=== PATIENT | female | born 1990 | race Caucasian/White ===

== ENCOUNTER 2022-04-28 10:43 | Inpatient (IN) | payer OTHER ==
[~2022-04-28 10:43] MED LIST: Iopamidol-370 76% 500 ML 1 ML ONE
[2022-04-28] MEDS ORDERED: Ondansetron PF 4 MG/2 ML Vial ONE (11:02)
[2022-04-28] MEDS ORDERED: Morphine 4 MG/ML VIAL ONE (11:02)
[2022-04-28 11:10] LABS: Hemoglobin 13.2 g/dL (12.0-16.0); Mean Corpuscular HGB CONC 32.4 g/dL (32.0-36.0); Mean Corpuscular Hemoglobin 23.2 pg (27.0-31.0); Mean Corpuscular Volume 71.7 fl (78.0-98.0); Mean Platelet Volume 9.5 fL (7.4-10.4); Platelet Count 276 10x3/uL (130-400); RBC Distribution Width 14.9 % (11.5-14.5); Red Blood Cell (RBC) Count 5.66 mill/uL (4.20-5.40)
[2022-04-28 11:27] LABS: BHCG - Serum Negative (NEGATIVE); Pregs Control Background? CLEAR/WHITE (CLR/WHITE); Pregs Control Bar Appear? YES (CONTROL BAR)
[2022-04-28] MEDS ORDERED: Acetaminophen 500 MG TAB ONE (11:29)
[2022-04-28] MEDS ORDERED: Piperacillin/Tazobactam 4.5 GM VIAL ONE (11:30)
[2022-04-28 11:32] LABS: ALT (SGPT) 18 U/L (8-55); AST (SGOT) 13 U/L (5-34); Albumin 4.1 g/dL (3.5-5.0); Alkaline Phosphatase 39 U/L (40-110); Anion Gap 16 mmol/L (10-20); BUN (Urea Nitrogen) 10 mg/dL (7.0-18.7); Bilirubin, Total 1.4 mg/dL (0.2-1.2); Calc. Creatinine Clearance 0 mL/min (70-130); Calcium 7.9 mg/dL (7.8-10.44); Carbon Dioxide 25 mmol/L (22-29); Chloride 99 mmol/L (98-107); Estimated GFR 112; Globulin 3.5 g/dL (2.4-3.5); Glucose 81 mg/dL (70-105); Potassium 3.2 mmol/L (3.5-5.1); Protein, Total 7.6 g/dL (6.0-8.3); Sodium 137 mmol/L (136-145)
[2022-04-28 11:36] LABS: Prothrombin Time 13.8 sec (12.0-14.7)
[2022-04-28 11:37] LABS: PTT 28.4 sec (22.9-36.1)
[2022-04-28 11:47] LABS: #Eosinphils 0.1 thou/uL (0.0-0.7); #Lymphocytes 1.3 thou/uL (1.20-3.40); #Monocytes 0.9 thou/uL (0.11-0.59); #Neutrophils 10.7 thou/uL (1.40-6.50); %Eosinophils 0.8 % (0.0-10.0); %Lymphocytes 10.1 % (21.0-51.0); %Monocytes 6.5 % (0.0-10.0); %Neutrophils 82.5 % (42.0-75.0); Hypochromia SLIGHT = 6-15 cells (100X) (0-5/hpf); MDiff Complete? YES; Microcytosis SLIGHT = 6-15 cells (100X) (0-5/hpf); Platelet Morphology Comment Appears Adequate; Polychromasia SLIGHT = 2-3 cells (100X) (0-2/hpf)
[2022-04-28 12:54] LABS: Bilirubin Negative (Negative); Blood, Urine Negative (Negative); Clarity Clear (Clear); Glucose, Urine (Dipstick) Normal (Negative); Ketone, Urine Trace mg/dL (Negative); Leukocyte Negative Leu/uL (Negative); Nitrite Negative (Negative); Protein, Urine (Dipstick) Negative (Neg-Trace); Specific Gravity, Urine 1.048 (1.002-1.036); Urobilinogen Normal mg/dL (Less than 2); pH, Urine 5.5 (5.0-9.0)
[2022-04-28] MEDS ORDERED: Ondansetron PF 4 MG/2 ML Vial IVP PRN (15:41)
[2022-04-28] MEDS ORDERED: Ondansetron ODT 4 MG TAB PO PRN (15:41)
[2022-04-28] MEDS ORDERED: Acetaminophen 650 MG Suppository PR PRN ×2 (15:41→17:30)
[2022-04-28] MEDS ORDERED: Acetaminophen 325 MG TAB PO PRN (15:41)
[2022-04-28] MEDS ORDERED: Morphine 4 MG/ML VIAL SLOW IVP PRN (15:43)
[2022-04-28] MEDS ORDERED: Electrolyte Replacement Protocol 1 EACH FS SCH (15:45)
[2022-04-28 16:12] VITALS: BMI 39.6
[2022-04-28] MEDS ORDERED: FLU VACC QS2022-23(6MOS UP)/PF 60 MCG/0.5 ML SYRINGE IM ONE (16:45)
[2022-04-28] MEDS: Acetaminophen 325 MG TAB PO PRN (17:47)
[2022-04-28] MEDS: methylPREDNISolone Sod Succ 40 MG VIAL IVP SCH (17:47)
[2022-04-28] MEDS: Piperacillin/Tazobactam 3.375 GM in Sodium Chloride 0.9% 100 ML IVPB SCH (17:47)
[2022-04-28] MEDS ORDERED: Ibuprofen 200 MG TAB PO PRN (19:38)
[2022-04-28] MEDS: Famotidine/PF 20 mg/2ml Vial SLOW IVP SCH (20:11)
[2022-04-29] MEDS: methylPREDNISolone Sod Succ 40 MG VIAL IVP SCH ×5 (00:55→23:05)
[2022-04-29] MEDS: Piperacillin/Tazobactam 3.375 GM in Sodium Chloride 0.9% 100 ML IVPB SCH ×3 (01:01→18:41)
[2022-04-29 08:00] LABS: ALT (SGPT) 17 U/L (8-55); AST (SGOT) 14 U/L (5-34); Albumin 3.5 g/dL (3.5-5.0); Alkaline Phosphatase 31 U/L (40-110); Anion Gap 13 mmol/L (10-20); BUN (Urea Nitrogen) 8 mg/dL (7.0-18.7); Calc. Creatinine Clearance 259 mL/min (70-130); Carbon Dioxide 23 mmol/L (22-29); Chloride 102 mmol/L (98-107); Estimated GFR 122; Globulin 2.9 g/dL (2.4-3.5); Glucose 119 mg/dL (70-105); Magnesium 1.8 mg/dL (1.6-2.6); Potassium 3.9 mmol/L (3.5-5.1); Protein, Total 6.4 g/dL (6.0-8.3); Sodium 134 mmol/L (136-145)
[2022-04-29] MEDS: Acetaminophen 325 MG TAB PO PRN (08:26)
[2022-04-29] MEDS: Escitalopram Oxalate 10 mg Tablet PO SCH (08:27)
[2022-04-29] MEDS: Famotidine/PF 20 mg/2ml Vial SLOW IVP SCH ×2 (08:28→20:45)
[2022-04-29] MEDS ORDERED: Magnesium 2 GM/50 ML(in water) 2 GM in Premix Bag 1 BAG IVPB SCH (09:15)
[2022-04-29] MEDS: Calcium Carbonate 500 MG ChewTAB PO SCH (20:45)
[2022-04-30] MEDS: Piperacillin/Tazobactam 3.375 GM in Sodium Chloride 0.9% 100 ML IVPB SCH ×2 (00:38→09:40)
[2022-04-30] MEDS: methylPREDNISolone Sod Succ 40 MG VIAL IVP SCH ×2 (05:39→12:29)
[2022-04-30] MEDS ORDERED: Levothyroxine Sodium 100 MCG TAB PO SCH (06:00)
[2022-04-30 07:57] LABS: Magnesium 2.1 mg/dL (1.6-2.6)
[2022-04-30] MEDS: Escitalopram Oxalate 10 mg Tablet PO SCH (09:40)
[2022-04-30] MEDS: Calcium Carbonate 500 MG ChewTAB PO SCH (09:40)
[2022-04-30] MEDS: Famotidine/PF 20 mg/2ml Vial SLOW IVP SCH (09:40)
[2022-04-30 14:54] VITALS: BP 136/83; TEMP 98.1
== END 2022-04-30 15:10 | disposition home or self-care (01) | DRG 386 ==
LOC: ERS 10:43 → ERHOLD 13:38 → T4-B 15:52
PROVIDERS: ADMIT Internal Medicine; ATTEND Internal Medicine
DX: K50.90 Crohn's disease, unspecified, without complications (principal); A09 Infectious gastroenteritis and colitis, unspecified; C85.90 Non-Hodgkin lymphoma, unspecified, unspecified site; C79.9 Secondary malignant neoplasm of unspecified site; R65.10 Systemic inflammatory response syndrome (SIRS) of non-infectious origin without acute organ dysfunction; D50.9 Iron deficiency anemia, unspecified; C73 Malignant neoplasm of thyroid gland; E87.6 Hypokalemia; Z88.8 Allergy status to other drugs, medicaments and biological substances; Z79.51 Long term (current) use of inhaled steroids; Z79.890 Hormone replacement therapy; Z88.5 Allergy status to narcotic agent
CPT/HCPCS: 36415; 36416; 74177; 80053; 81003; 83605; 83735; 84703; 85025; 85610; 85730; 87040; 87086; 93005; 94760; 96374; 96375; J2270; J2405; J2543; J2920; J3475; J3480; J3490; Q9967; S0028; U0003; U0005

== ENCOUNTER 2022-05-28 09:29 | Inpatient (IN) | payer OTHER ==
[2022-05-28 10:22] LABS: #Eosinphils 0.1 thou/uL (0.0-0.7); #Lymphocytes 2.9 thou/uL (1.20-3.40); #Monocytes 1.4 thou/uL (0.11-0.59); #Neutrophils 11.2 thou/uL (1.40-6.50); %Basophils 0.2 % (0.0-1.0); %Eosinophils 0.6 % (0.0-10.0); %Lymphocytes 18.6 % (21.0-51.0); %Neutrophils 71.6 % (42.0-75.0); Hemoglobin 12.5 g/dL (12.0-16.0); Mean Corpuscular Hemoglobin 22.2 pg (27.0-31.0); Mean Corpuscular Volume 71.6 fl (78.0-98.0); Mean Platelet Volume 8.9 fL (7.4-10.4); Platelet Count 346 10x3/uL (130-400); RBC Distribution Width 15.5 % (11.5-14.5); Red Blood Cell (RBC) Count 5.63 mill/uL (4.20-5.40); White Blood Cell (WBC) Count 15.7 10x3/uL (4.8-10.8)
[2022-05-28 10:49] LABS: ALT (SGPT) 20 U/L (8-55); AST (SGOT) 12 U/L (5-34); Alkaline Phosphatase 39 U/L (40-110); Anion Gap 16 mmol/L (10-20); BUN (Urea Nitrogen) 13 mg/dL (7.0-18.7); Bilirubin, Total 0.9 mg/dL (0.2-1.2); Calc. Creatinine Clearance 0 mL/min (70-130); Calcium 8.2 mg/dL (7.8-10.44); Carbon Dioxide 25 mmol/L (22-29); Chloride 98 mmol/L (98-107); Estimated GFR 107; Globulin 3.6 g/dL (2.4-3.5); Glucose 78 mg/dL (70-105); Potassium 3.6 mmol/L (3.5-5.1); Protein, Total 7.6 g/dL (6.0-8.3); Sodium 135 mmol/L (136-145)
[2022-05-28] MEDS ORDERED: Iopamidol-370 76% 500 ML 1 ML ONE (11:32)
[2022-05-28 11:43] LABS: Bacteria/HPF None Seen HPF (None Seen); Bilirubin Negative (Negative); Blood, Urine 2+ (Negative); Clarity Clear (Clear); Glucose, Urine (Dipstick) Normal (Negative); Ketone, Urine Negative (Negative); Leukocyte 25 Leu/uL (Negative); Nitrite Negative (Negative); Protein, Urine (Dipstick) 50 mg/dL (Neg-Trace); Specific Gravity, Urine 1.042 (1.002-1.036); WBC/HPF 0-3 HPF (0-3); pH, Urine 5.5 (5.0-9.0)
[2022-05-28 11:47] LABS: Pregnancy Test - Urine (BHCG) Negative (Negative); Pregu Control Background? CLEAR/WHITE (CLR/WHITE); Pregu Control Bar Appear? YES (CONTROL BAR); Specific Gravity 1.042 (1.002-1.036)
[2022-05-28] MEDS ORDERED: Ondansetron PF 4 MG/2 ML Vial ONE (12:17)
[2022-05-28] MEDS ORDERED: Morphine 4 MG/ML VIAL ONE ×4 (12:19→18:05)
[2022-05-28] MEDS ORDERED: Piperacillin/Tazobactam 3.375 GM VIAL ONE (14:11)
[2022-05-28] MEDS ORDERED: Morphine 2 MG/ML VIAL ONE (14:34)
[2022-05-28] MEDS ORDERED: Ipratropium/Albuterol 3 ML NEB NEB PRN (19:46)
[2022-05-28] MEDS ORDERED: Morphine 2 MG/ML VIAL SLOW IVP PRN (19:46)
[2022-05-28] MEDS ORDERED: Ondansetron PF 4 MG/2 ML Vial IVP PRN (19:46)
[2022-05-28] MEDS ORDERED: Ketorolac Tromethamine 30 MG/ML VIAL IVP PRN (19:46)
[2022-05-28] MEDS ORDERED: hydrALAZINE 20 MG/ML VIAL SLOW IVP PRN (19:46)
[2022-05-28] MEDS ORDERED: Dextrose 5% in Water 1,000 ML IV PRN (19:46)
[2022-05-28] MEDS ORDERED: Dextrose 50% Abboject 50 ML SYRINGE SLOW IVP PRN (19:46)
[2022-05-28] MEDS ORDERED: Promethazine HCl 25 MG/ML VIAL IM PRN (19:46)
[2022-05-28] MEDS ORDERED: Ketorolac Tromethamine 30 MG/ML VIAL ONE (19:48)
[2022-05-28] MEDS: Calcitriol 0.25 MCG CAP PO SCH (22:03)
[2022-05-28] MEDS: Famotidine 20 MG TAB PO SCH (22:04)
[2022-05-28] MEDS: Piperacillin/Tazobactam 3.375 GM in Sodium Chloride 0.9% 100 ML IVPB SCH (22:04)
[2022-05-28] MEDS: Famotidine/PF 20 mg/2ml Vial SLOW IVP SCH (22:04)
[2022-05-28] MEDS: Morphine 4 MG/ML VIAL SLOW IVP PRN (22:04)
[2022-05-28] MEDS: D5 1/2 NS w/20 mEq KCL 1,000 ML IV SCH (22:05)
[2022-05-28 22:30] VITALS: BMI 39.7
[2022-05-28 23:07] LABS: SARS-CoV-2 NAA Rapid Test Not Detected (NotDetected)
[2022-05-29] MEDS: Morphine 4 MG/ML VIAL SLOW IVP PRN (02:42)
[2022-05-29 03:07] LABS: Pregnancy Test - Urine (BHCG) Negative (Negative); Pregu Control Background? CLEAR/WHITE (CLR/WHITE); Pregu Control Bar Appear? YES (CONTROL BAR); Specific Gravity 1.031 (1.002-1.036)
[2022-05-29] MEDS: Levothyroxine Sodium 100 MCG TAB PO SCH (04:43)
[2022-05-29] MEDS: Piperacillin/Tazobactam 3.375 GM in Sodium Chloride 0.9% 100 ML IVPB SCH ×2 (04:44→15:52)
[2022-05-29] MEDS: D5 1/2 NS w/20 mEq KCL 1,000 ML IV SCH ×2 (04:44→15:52)
[2022-05-29 05:52] LABS: #Eosinphils 0.1 thou/uL (0.0-0.7); #Lymphocytes 2.3 thou/uL (1.20-3.40); #Monocytes 1.4 thou/uL (0.11-0.59); %Eosinophils 0.6 % (0.0-10.0); %Monocytes 10.8 % (0.0-10.0); %Neutrophils 70.6 % (42.0-75.0); Hemoglobin 10.5 g/dL (12.0-16.0); Mean Corpuscular HGB CONC 32.2 g/dL (32.0-36.0); Mean Corpuscular Volume 71.6 fl (78.0-98.0); Mean Platelet Volume 8.6 fL (7.4-10.4); Platelet Count 293 10x3/uL (130-400); RBC Distribution Width 15.3 % (11.5-14.5); Red Blood Cell (RBC) Count 4.54 mill/uL (4.20-5.40); White Blood Cell (WBC) Count 12.7 10x3/uL (4.8-10.8)
[2022-05-29 06:09] LABS: ALT (SGPT) 14 U/L (8-55); AST (SGOT) 8 U/L (5-34); Albumin 3.3 g/dL (3.5-5.0); Alkaline Phosphatase 30 U/L (40-110); Bilirubin, Direct 0.5 mg/dL (0.1-0.3); Bilirubin, Total 1.5 mg/dL (0.2-1.2); CRP (Inflammatory) 13.05 mg/dL (= or < 0.5)
[2022-05-29 06:15] LABS: Anion Gap 15 mmol/L (10-20); BUN (Urea Nitrogen) 11 mg/dL (7.0-18.7); Calc. Creatinine Clearance 200 mL/min (70-130); Calcium 6.8 mg/dL (7.8-10.44); Carbon Dioxide 22 mmol/L (22-29); Chloride 102 mmol/L (98-107); Estimated GFR 103; Glucose 82 mg/dL (70-105); Magnesium 1.7 mg/dL (1.6-2.6); Potassium 3.6 mmol/L (3.5-5.1); Sodium 135 mmol/L (136-145)
[2022-05-29] MEDS: Calcitriol 0.25 MCG CAP PO SCH ×2 (08:56→21:04)
[2022-05-29] MEDS: Escitalopram Oxalate 10 mg Tablet PO SCH (08:56)
[2022-05-29] MEDS: predniSONE 20 MG TAB PO SCH (08:56)
[2022-05-29] MEDS: Cholecalciferol 1,000 UNITS (25 MCG) TAB PO SCH (08:56)
[2022-05-29] MEDS: Famotidine 20 MG TAB PO SCH ×2 (08:56→21:04)
[2022-05-29] MEDS: Famotidine/PF 20 mg/2ml Vial SLOW IVP SCH ×2 (08:57→21:49)
[2022-05-29] MEDS ORDERED: Calcium Gluconate 4.6 MEQ in Sodium Chloride 0.9% 100 ML IVPB SCH (09:30)
[2022-05-29] MEDS ORDERED: CALCIUM GLUC 1 GM/NS 50 ML 1 GM in Premix Bag 1 BAG IVPB SCH (09:30)
[2022-05-29] MEDS ORDERED: USTEKINUMAB IVPB SCH (10:00)
[2022-05-29] MEDS ORDERED: Acetaminophen 325 MG/10.15 ML UDCUP PO PRN (15:02)
[2022-05-29 21:51] LABS: Campy jejuni + coli by PCR Negative (Negative); STEC Shiga Toxin 1+2 Negative (Negative); Salmonella spp. by PCR Negative (Negative); Shigella spp + EIEC by PCR Negative (Negative)
[2022-05-30] MEDS: Piperacillin/Tazobactam 3.375 GM in Sodium Chloride 0.9% 100 ML IVPB SCH ×3 (00:10→16:32)
[2022-05-30] MEDS: D5 1/2 NS w/20 mEq KCL 1,000 ML IV SCH ×3 (03:50→09:15)
[2022-05-30] MEDS: Levothyroxine Sodium 100 MCG TAB PO SCH (06:28)
[2022-05-30 06:48] LABS: #Eosinphils 0.1 thou/uL (0.0-0.7); #Monocytes 0.9 thou/uL (0.11-0.59); #Neutrophils 8.1 thou/uL (1.40-6.50); %Basophils 0.2 % (0.0-1.0); %Eosinophils 0.9 % (0.0-10.0); %Lymphocytes 17.8 % (21.0-51.0); %Monocytes 7.6 % (0.0-10.0); %Neutrophils 73.5 % (42.0-75.0); Hemoglobin 9.9 g/dL (12.0-16.0); Mean Corpuscular Hemoglobin 22.6 pg (27.0-31.0); Mean Corpuscular Volume 72.9 fl (78.0-98.0); Mean Platelet Volume 8.9 fL (7.4-10.4); Platelet Count 252 10x3/uL (130-400); RBC Distribution Width 15.4 % (11.5-14.5); Red Blood Cell (RBC) Count 4.38 mill/uL (4.20-5.40); White Blood Cell (WBC) Count 11.1 10x3/uL (4.8-10.8)
[2022-05-30 07:16] LABS: Anion Gap 10 mmol/L (10-20); BUN (Urea Nitrogen) 5 mg/dL (7.0-18.7); Calc. Creatinine Clearance 251 mL/min (70-130); Carbon Dioxide 25 mmol/L (22-29); Chloride 103 mmol/L (98-107); Estimated GFR 121; Glucose 98 mg/dL (70-105); Magnesium 1.9 mg/dL (1.6-2.6); Potassium 3.4 mmol/L (3.5-5.1); Sodium 135 mmol/L (136-145)
[2022-05-30] MEDS: Calcitriol 0.25 MCG CAP PO SCH (09:15)
[2022-05-30] MEDS: Famotidine 20 MG TAB PO SCH (09:16)
[2022-05-30] MEDS: predniSONE 20 MG TAB PO SCH (09:16)
[2022-05-30] MEDS: Escitalopram Oxalate 10 mg Tablet PO SCH (09:16)
[2022-05-30] MEDS: Cholecalciferol 1,000 UNITS (25 MCG) TAB PO SCH (09:16)
[2022-05-30] MEDS: Famotidine/PF 20 mg/2ml Vial SLOW IVP SCH (09:24)
[2022-05-30 14:26] VITALS: BP 115/80; TEMP 98.3
== END 2022-05-30 19:18 | disposition home or self-care (01) | DRG 385 ==
LOC: ERS 09:29 → ERHOLD 19:57 → SURG B 21:54
PROVIDERS: ADMIT Surgery; ATTEND Surgery
DX: K50.918 Crohn's disease, unspecified, with other complication (principal); A41.9 Sepsis, unspecified organism; K36 Other appendicitis; E03.9 Hypothyroidism, unspecified; F32.A Depression, unspecified; R31.29 Other microscopic hematuria; K52.9 Noninfective gastroenteritis and colitis, unspecified; E83.51 Hypocalcemia; Z20.822 Contact with and (suspected) exposure to COVID-19; Z98.890 Other specified postprocedural states; Z88.8 Allergy status to other drugs, medicaments and biological substances; Z88.5 Allergy status to narcotic agent
CPT/HCPCS: 36415; 74177; 80048; 80053; 80076; 81003; 81015; 81025; 83605; 83630; 83735; 84443; 85025; 86140; 87040; 87324; 87449; 87505; 93005; 96361; 96365; 96375; 96376; J0611; J1885; J2270; J2272; J2405; J2543; J3480; J3490; J7512; Q9967; U0002

== ENCOUNTER 2022-08-13 13:33 | Inpatient (IN) | payer OTHER ==
[2022-08-13] MEDS ORDERED: Morphine 4 MG/ML VIAL ONE ×2 (13:52→16:28)
[2022-08-13] MEDS ORDERED: methylPREDNISolone Sod Succ/PF 125 MG/2 ML VIAL ONE (13:53)
[2022-08-13] MEDS ORDERED: Ondansetron PF 4 MG/2 ML Vial ONE ×2 (13:53→15:57)
[2022-08-13 14:23] LABS: Hemoglobin 12.8 g/dL (12.0-16.0); Mean Corpuscular HGB CONC 32.1 g/dL (32.0-36.0); Mean Corpuscular Hemoglobin 22.1 pg (27.0-31.0); Mean Corpuscular Volume 68.9 fl (78.0-98.0); Mean Platelet Volume 9.5 fL (7.4-10.4); Platelet Count 387 10x3/uL (130-400); RBC Distribution Width 16.8 % (11.5-14.5); Red Blood Cell (RBC) Count 5.81 mill/uL (4.20-5.40); White Blood Cell (WBC) Count 23.1 10x3/uL (4.8-10.8)
[2022-08-13 14:53] LABS: ALT (SGPT) 26 U/L (8-55); AST (SGOT) 13 U/L (5-34); Albumin 4.4 g/dL (3.5-5.0); Alkaline Phosphatase 43 U/L (40-110); Anion Gap 22 mmol/L (10-20); BUN (Urea Nitrogen) 16 mg/dL (7.0-18.7); Bilirubin, Total 1.3 mg/dL (0.2-1.2); Calc. Creatinine Clearance 0 mL/min (70-130); Calcium 8.8 mg/dL (7.8-10.44); Carbon Dioxide 20 mmol/L (22-29); Chloride 100 mmol/L (98-107); Estimated GFR 89; Globulin 3.7 g/dL (2.4-3.5); Glucose 147 mg/dL (70-105); Lipase 28 U/L (8-78); Protein, Total 8.1 g/dL (6.0-8.3); Sodium 139 mmol/L (136-145)
[2022-08-13 14:55] LABS: Anisocytosis SLIGHT = 6-15 cells (100X) (0-5/hpf); Band 9 % (5-11); Lymphocytes 21 % (21-51); MDiff Complete? YES; Microcytosis SLIGHT = 6-15 cells (100X) (0-5/hpf); Monocytes 1 % (0-10); Neutrophil 69 % (42-75); Ovalocytes SLIGHT = 2-5 cells (100X) (0-1/hpf); Platelet Morphology Comment Appears Adequate; Polychromasia SLIGHT = 2-3 cells (100X) (0-2/hpf); Stomatocytes SLIGHT = 2-5 cells (100X) (0-1/hpf)
[2022-08-13 15:03] LABS: Bacteria/HPF None Seen HPF (None Seen); Bilirubin Negative (Negative); Blood, Urine Trace (Negative); Glucose, Urine (Dipstick) Normal (Negative); Ketone, Urine 10 mg/dL (Negative); Leukocyte 25 Leu/uL (Negative); Nitrite Negative (Negative); Protein, Urine (Dipstick) 70 mg/dL (Neg-Trace); RBC/HPF 0-3 HPF (0-3); Specific Gravity, Urine 1.038 (1.002-1.036); Squamous Epithelial 0-3 HPF (0-3); Urobilinogen Normal mg/dL (Less than 2); pH, Urine 5.5 (5.0-9.0)
[2022-08-13 15:04] LABS: Clarity Hazy (Clear); Pregnancy Test - Urine (BHCG) Negative (Negative); Pregu Control Background? CLEAR/WHITE (CLR/WHITE); Pregu Control Bar Appear? YES (CONTROL BAR); Specific Gravity 1.038 (1.002-1.036)
[2022-08-13] MEDS ORDERED: Benzocaine 20% Spray 60 ML CAN ONE (15:46)
[2022-08-13] MEDS ORDERED: Iopamidol-370 76% 500 ML MDV (1 ML CHARGE) ONE (15:49)
[2022-08-13] MEDS ORDERED: Morphine 2 MG/ML VIAL ONE (16:28)
[2022-08-13 17:31] LABS: Lactic Acid 1.8 mmol/L (0.5-2.2)
[2022-08-13] MEDS ORDERED: Piperacillin/Tazobactam 3.375 GM VIAL ONE (17:35)
[2022-08-13] MEDS ORDERED: Acetaminophen 325 MG TAB PO PRN (17:47)
[2022-08-13] MEDS ORDERED: Ondansetron ODT 4 MG TAB PO PRN (17:47)
[2022-08-13] MEDS ORDERED: Ondansetron PF 4 MG/2 ML Vial IVP PRN (17:47)
[2022-08-13] MEDS ORDERED: Electrolyte Replacement Protocol 1 EACH FS PRN (18:00)
[2022-08-13 18:20] LABS: Magnesium 1.8 mg/dL (1.6-2.6)
[2022-08-13 19:26] VITALS: BMI 38.9
[2022-08-13] MEDS: Lactated Ringer's 1,000 ML IV SCH (19:28)
[2022-08-13] MEDS: Pantoprazole 40 MG VIAL IVP SCH (19:51)
[2022-08-13] MEDS: Morphine 4 MG/ML VIAL SLOW IVP PRN (19:51)
[2022-08-13] MEDS ORDERED: USTEKINUMAB 90 MG/ML IV SCH (20:15)
[2022-08-13] MEDS: Calcitriol 0.25 MCG CAP PO SCH (21:36)
[2022-08-13] MEDS: Potassium Chloride 20 MEQ in Premix Bag 1 BAG IVPB SCH (21:52)
[2022-08-13] MEDS ORDERED: Magnesium 2 GM/50 ML(in water) 2 GM in Premix Bag 1 BAG IVPB SCH (22:00)
[2022-08-13] MEDS: Piperacillin/Tazobactam 3.375 GM in Sodium Chloride 0.9% 100 ML IVPB SCH (22:28)
[2022-08-14] MEDS: Potassium Chloride 20 MEQ in Premix Bag 1 BAG IVPB SCH (00:37)
[2022-08-14] MEDS: Morphine 4 MG/ML VIAL SLOW IVP PRN ×3 (04:16→19:06)
[2022-08-14] MEDS: Lactated Ringer's 1,000 ML IV SCH (04:19)
[2022-08-14] MEDS: Piperacillin/Tazobactam 3.375 GM in Sodium Chloride 0.9% 100 ML IVPB SCH ×3 (05:30→21:51)
[2022-08-14] MEDS: Levothyroxine 175 MCG TAB PO SCH (05:31)
[2022-08-14 07:20] LABS: #Lymphocytes 1.5 thou/uL (1.20-3.40); #Monocytes 1.1 thou/uL (0.11-0.59); #Neutrophils 8.1 thou/uL (1.40-6.50); %Eosinophils 0.4 % (0.0-10.0); %Lymphocytes 14.3 % (21.0-51.0); %Monocytes 9.8 % (0.0-10.0); %Neutrophils 75.5 % (42.0-75.0); Mean Corpuscular Hemoglobin 22.2 pg (27.0-31.0); Mean Corpuscular Volume 69.4 fl (78.0-98.0); Mean Platelet Volume 9.4 fL (7.4-10.4); Platelet Count 300 10x3/uL (130-400); RBC Distribution Width 16.4 % (11.5-14.5); Red Blood Cell (RBC) Count 4.48 mill/uL (4.20-5.40); White Blood Cell (WBC) Count 10.7 10x3/uL (4.8-10.8)
[2022-08-14 07:42] LABS: ALT (SGPT) 21 U/L (8-55); AST (SGOT) 9 U/L (5-34); Albumin 3.4 g/dL (3.5-5.0); Alkaline Phosphatase 29 U/L (40-110); Anion Gap 14 mmol/L (10-20); BUN (Urea Nitrogen) 10 mg/dL (7.0-18.7); Bilirubin, Total 1.2 mg/dL (0.2-1.2); Calc. Creatinine Clearance 222 mL/min (70-130); Calcium 7.5 mg/dL (7.8-10.44); Carbon Dioxide 24 mmol/L (22-29); Chloride 104 mmol/L (98-107); Estimated GFR 118; Globulin 2.8 g/dL (2.4-3.5); Glucose 98 mg/dL (70-105); Protein, Total 6.2 g/dL (6.0-8.3); Sodium 138 mmol/L (136-145)
[2022-08-14] MEDS: Escitalopram Oxalate 10 mg Tablet PO SCH (07:42)
[2022-08-14] MEDS: Calcitriol 0.25 MCG CAP PO SCH ×2 (07:42→20:00)
[2022-08-14] MEDS: Pantoprazole 40 MG VIAL IVP SCH ×2 (07:58→20:00)
[2022-08-14] MEDS: methylPREDNISolone Sod Succ 40 MG VIAL IVP SCH (07:58)
[2022-08-14] MEDS: Calcium Carbonate 500 MG TAB PO SCH (20:00)
[2022-08-15] MEDS: Levothyroxine 175 MCG TAB PO SCH (05:35)
[2022-08-15] MEDS: Piperacillin/Tazobactam 3.375 GM in Sodium Chloride 0.9% 100 ML IVPB SCH ×3 (05:35→21:30)
[2022-08-15 07:26] LABS: #Basophils 0.1 thou/uL (0.0-0.2); #Eosinphils 0.1 thou/uL (0.0-0.7); #Lymphocytes 2.2 thou/uL (1.20-3.40); #Neutrophils 6.4 thou/uL (1.40-6.50); %Basophils 0.7 % (0.0-1.0); %Eosinophils 0.8 % (0.0-10.0); %Lymphocytes 22.2 % (21.0-51.0); %Monocytes 10.3 % (0.0-10.0); Hemoglobin 9.8 g/dL (12.0-16.0); Mean Corpuscular HGB CONC 32.3 g/dL (32.0-36.0); Mean Corpuscular Hemoglobin 22.4 pg (27.0-31.0); Mean Corpuscular Volume 69.3 fl (78.0-98.0); Mean Platelet Volume 9.2 fL (7.4-10.4); Platelet Count 271 10x3/uL (130-400); RBC Distribution Width 16.3 % (11.5-14.5); Red Blood Cell (RBC) Count 4.36 mill/uL (4.20-5.40); White Blood Cell (WBC) Count 9.7 10x3/uL (4.8-10.8)
[2022-08-15 08:27] LABS: ALT (SGPT) 17 U/L (8-55); AST (SGOT) 10 U/L (5-34); Albumin 3.5 g/dL (3.5-5.0); Alkaline Phosphatase 26 U/L (40-110); Anion Gap 14 mmol/L (10-20); BUN (Urea Nitrogen) 8 mg/dL (7.0-18.7); Bilirubin, Total 0.7 mg/dL (0.2-1.2); Calc. Creatinine Clearance 207 mL/min (70-130); Calcium 7.6 mg/dL (7.8-10.44); Carbon Dioxide 24 mmol/L (22-29); Chloride 103 mmol/L (98-107); Estimated GFR 111; Globulin 2.7 g/dL (2.4-3.5); Glucose 69 mg/dL (70-105); Potassium 3.4 mmol/L (3.5-5.1); Protein, Total 6.2 g/dL (6.0-8.3); Sodium 138 mmol/L (136-145)
[2022-08-15] MEDS ORDERED: Potassium Chloride 20 MEQ TAB PO SCH (09:00)
[2022-08-15] MEDS ORDERED: Potassium Bicarbonate/Cit Ac 20 MEQ TAB PO SCH (09:30)
[2022-08-15] MEDS: methylPREDNISolone Sod Succ 40 MG VIAL IVP SCH (09:58)
[2022-08-15] MEDS: Escitalopram Oxalate 10 mg Tablet PO SCH (09:58)
[2022-08-15] MEDS: Calcitriol 0.25 MCG CAP PO SCH ×2 (09:59→20:12)
[2022-08-15] MEDS: Calcium Carbonate 500 MG TAB PO SCH ×3 (09:59→20:12)
[2022-08-15] MEDS: Pantoprazole 40 MG VIAL IVP SCH ×2 (09:59→20:13)
[2022-08-15] MEDS: Morphine 4 MG/ML VIAL SLOW IVP PRN (10:17)
[2022-08-16] MEDS: Morphine 4 MG/ML VIAL SLOW IVP PRN (02:02)
[2022-08-16 02:47] VITALS: BP 143/82; TEMP 98
[2022-08-16] MEDS: Piperacillin/Tazobactam 3.375 GM in Sodium Chloride 0.9% 100 ML IVPB SCH (05:23)
[2022-08-16] MEDS: Levothyroxine 175 MCG TAB PO SCH (05:23)
[2022-08-16 06:49] LABS: #Eosinphils 0.1 thou/uL (0.0-0.7); #Neutrophils 6.2 thou/uL (1.40-6.50); %Basophils 0.1 % (0.0-1.0); %Eosinophils 0.9 % (0.0-10.0); %Lymphocytes 28.8 % (21.0-51.0); %Monocytes 9.4 % (0.0-10.0); %Neutrophils 60.9 % (42.0-75.0); Hemoglobin 9.7 g/dL (12.0-16.0); Mean Corpuscular HGB CONC 32.8 g/dL (32.0-36.0); Mean Corpuscular Hemoglobin 22.9 pg (27.0-31.0); Mean Corpuscular Volume 69.8 fl (78.0-98.0); Mean Platelet Volume 9.7 fL (7.4-10.4); Platelet Count 273 10x3/uL (130-400); RBC Distribution Width 16.2 % (11.5-14.5); Red Blood Cell (RBC) Count 4.23 mill/uL (4.20-5.40); White Blood Cell (WBC) Count 10.2 10x3/uL (4.8-10.8)
[2022-08-16 07:17] LABS: ALT (SGPT) 14 U/L (8-55); AST (SGOT) 8 U/L (5-34); Albumin 3.6 g/dL (3.5-5.0); Alkaline Phosphatase 29 U/L (40-110); Anion Gap 15 mmol/L (10-20); BUN (Urea Nitrogen) 5 mg/dL (7.0-18.7); Bilirubin, Total 0.6 mg/dL (0.2-1.2); Calc. Creatinine Clearance 210 mL/min (70-130); Calcium 8.1 mg/dL (7.8-10.44); Carbon Dioxide 26 mmol/L (22-29); Chloride 100 mmol/L (98-107); Estimated GFR 113; Globulin 2.9 g/dL (2.4-3.5); Glucose 82 mg/dL (70-105); Potassium 3.4 mmol/L (3.5-5.1); Protein, Total 6.5 g/dL (6.0-8.3); Sodium 138 mmol/L (136-145)
[2022-08-16] MEDS ORDERED: Potassium Bicarbonate/Cit Ac 20 MEQ TAB PO SCH (08:00)
[2022-08-16] MEDS: Pantoprazole 40 MG VIAL IVP SCH (08:06)
[2022-08-16] MEDS: methylPREDNISolone Sod Succ 40 MG VIAL IVP SCH (08:06)
[2022-08-16] MEDS: Escitalopram Oxalate 10 mg Tablet PO SCH (08:07)
[2022-08-16] MEDS: Calcitriol 0.25 MCG CAP PO SCH (08:09)
[2022-08-16] MEDS: Calcium Carbonate 500 MG TAB PO SCH ×2 (08:09→14:34)
[2022-08-16] MEDS ORDERED: predniSONE 20 MG TAB PO SCH (17:00)
== END 2022-08-16 16:37 | disposition home or self-care (01) | DRG 872 ==
LOC: ERS 13:33 → T4-A 17:11
PROVIDERS: ADMIT Internal Medicine; ATTEND Internal Medicine
PROC: 3E03329 Introduction of Other Anti-infective into Peripheral Vein, Percutaneous Approach (ICD-10-PCS; principal; 2022-08-13)
PROC: 0D9670Z Drainage of Stomach with Drainage Device, Via Natural or Artificial Opening (ICD-10-PCS; 2022-08-13)
DX: A41.9 Sepsis, unspecified organism (principal); K50.012 Crohn's disease of small intestine with intestinal obstruction; E89.0 Postprocedural hypothyroidism; E87.6 Hypokalemia; Z88.1 Allergy status to other antibiotic agents; Z88.5 Allergy status to narcotic agent; Z88.7 Allergy status to serum and vaccine; Z79.899 Other long term (current) drug therapy; Z79.890 Hormone replacement therapy; Z79.52 Long term (current) use of systemic steroids; Z85.850 Personal history of malignant neoplasm of thyroid; Z90.49 Acquired absence of other specified parts of digestive tract; Z87.19 Personal history of other diseases of the digestive system
CPT/HCPCS: 36415; 43752; 74177; 80053; 81003; 81015; 81025; 83605; 83690; 83735; 85025; 87040; 96361; 96374; 96375; 96376; C9113; J1650; J2270; J2272; J2405; J2543; J2920; J2930; J3475; J3480; J3490; J7120; Q9967